=== PATIENT | male | born 1980 | race American Indian/Alaskan Native ===

== ENCOUNTER 2020-07-04 05:14 | Emergency (ER) | payer OTHER ==
[2020-07-04] MEDS ORDERED: ACETAMINOPHEN 500 MG TAB PO ONE (05:37)
[2020-07-04] MEDS ORDERED: IBUPROFEN 600 MG TAB PO ONE (05:37)
[2020-07-04 06:10] VITALS: BP 120/89
--- NOTE | 2020-07-04 06:39 | XRay Report ---
Left knee 3 views INDICATION: Left knee pain following injury IMPRESSION: No fracture or subluxation. Signer Name: Varinder Matamoros MD Signed: 07/04/2020 6:35 AM Workstation Name: [id number]
--- NOTE | 2020-07-04 06:40 | XRay Report ---
Left shoulder 3 views INDICATION: Left shoulder pain following injury IMPRESSION: No fracture or subluxation identified. Signer Name: Varinder Matamoros MD Signed: 07/04/2020 6:36 AM Workstation Name: [id number]
--- NOTE | 2020-07-04 06:40 | XRay Report ---
Lumbar spine 2 views INDICATION: Low back pain. IMPRESSION: No acute fracture or subluxation identified. Signer Name: Varinder Matamoros MD Signed: 07/04/2020 6:35 AM Workstation Name: [id number]
[2020-07-04] MEDS ORDERED: ONDANSETRON 4 MG/2 ML INJ IV ONE (07:50)
[2020-07-04] MEDS ORDERED: MORPHINE 4 MG/1 ML INJ IV ONE (07:50)
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
[2020-07-04 08:52] LABS: Basophils # (Auto) 0.1 K/mm3 (0.0-0.1); Basophils % (Auto) 0.7 % (0.0-1.8); Eosinophils # (Auto) 0.1 K/mm3 (0.0-0.4); Hematocrit 45.9 % (35.5-45.6); Hemoglobin 15.7 gm/dl (11.8-15.2); Lymphocytes # (Auto) 1.7 K/mm3 (1.2-5.4); Lymphocytes % (Auto) 23.4 % (13.4-35.0); Mean Corpuscular HGB Conc 34 % (32-34); Mean Corpuscular Volume 103 fl (84-94); Monocytes # (Auto) 0.7 K/mm3 (0.0-0.8); Monocytes % (Auto) 9.5 % (0.0-7.3); Platelet Count 277 K/mm3 (140-440); Red Blood Count 4.48 M/mm3 (3.65-5.03); Red Cell Distribution Width 12.5 % (13.2-15.2)
[2020-07-04 09:11] LABS: Alanine Aminotransferase 24 units/L (7-56); Albumin 4.5 g/dL (3.9-5); BUN/Creatinine Ratio 12; Blood Urea Nitrogen 12 mg/dL (9-20); Calcium 9.4 mg/dL (8.4-10.2); Hemolysis Index 14
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
== END 2020-07-04 11:59 | disposition home or self-care (01) ==
LOC: ED 05:14
DX: S39.012A Strain of muscle, fascia and tendon of lower back, initial encounter (principal); S16.1XXA Strain of muscle, fascia and tendon at neck level, initial encounter; S86.912A Strain of unspecified muscle(s) and tendon(s) at lower leg level, left leg, initial encounter; S30.1XXA Contusion of abdominal wall, initial encounter; S20.212A Contusion of left front wall of thorax, initial encounter; Z79.1 Long term (current) use of non-steroidal anti-inflammatories (NSAID); Z79.899 Other long term (current) drug therapy; V49.49XA Driver injured in collision with other motor vehicles in traffic accident, initial encounter; Y93.89 Activity, other specified; Y92.410 Unspecified street and highway as the place of occurrence of the external cause; Y99.8 Other external cause status
CPT/HCPCS: 36415; 70450; 71260; 72100; 72125; 73030; 73552; 73562; 73620; 74177; 80053; 85025; 96374; 96375; 99284; J2270; J2405; Q9967